=== PATIENT | female | born 1965 | race Caucasian/White ===

== ENCOUNTER 2019-08-19 18:25 | Inpatient (IN) | payer OTHER ==
[~2019-08-19] VITALS: Ht 167.6 cm; Wt 73.9 kg
--- NOTE | 2019-08-19 18:40 | NUR ---
PT BIB SELF C/O SOB AND COUGH, STS SHE WAS SEEN AT "[facility]" FOR THE PASSED 2 DAYS, AND GIVEN "BREATHING TREATMENTS AND STERIOD INJECTIONS" STS SHE WAS ADVISED TO COME TO ED FOR "MORE TREATMENT". PT NOTED TO BE TACHYPNIC AND LABORED, PLACED ON FULL CM IMMEDIATELY, IV 20G TO LAC INITIATED, FULL ROM NOTED TO EDGARD UPPER AND LOWER EXTREMETIES. PT'S GLASSES NOTED TO BE AT BEDSIDE. NO EDEMA NOTED TO EXTREMETIES, 2+ CAP REFILL NOTED TO EDGARD UPPER AND LOWER EXTREMETIES. CALL LIGHT WITHIN REACH, VSS, PT IN POSITION OF COMFORT, EDGARD RAILS RAISED FOR SAFETY.
--- NOTE | 2019-08-19 18:47 | NUR ---
EKG IN PROGRESS.
--- NOTE | 2019-08-19 18:55 | NUR ---
DR HOOPER AT BEDSIDE FOR MSE.
--- NOTE | 2019-08-19 19:05 | NUR ---
PT RETURNED TO XRAY.
--- NOTE | 2019-08-19 19:07 | NUR ---
LAB AT BEDSIDE FOR BLOOD DRAW.
--- NOTE | 2019-08-19 19:09 | NUR ---
RT AT BEDSIDE.
--- NOTE | 2019-08-19 19:11 | NUR ---
REPORT GIVEN TO PAWEL RN TO ASSUME CARE OF PT.
[2019-08-19 19:24] LABS: BASOPHIL % 0.1 % (0-2); PLATELET COUNT 315 x10^3mcL (130-400); RED CELL DISTRIBUTION WIDTH 13.7 % (11.5-14.5)
--- NOTE | 2019-08-19 19:27 | NUR ---
RT AT BEDSIDE TO ADMIN BREATHING TX AND DRAW ABGS.
[2019-08-19 19:42] LABS: ALBUMIN 3.6 g/dL (3.4-5.0); ALKALINE PHOSPHATASE 111 U/L (46-116); ALT/SGPT 24 U/L (14-59); AST/SGOT 13 U/L (15-37); BILIRUBIN TOTAL 0.4 mg/dL (0.20-1.00); CALCIUM 8.4 mg/dL (8.5-10.1); CARBON DIOXIDE 22.8 mmol/L (21-32); CHLORIDE SERUM 86 mmol/L (98-107); CREATININE SERUM 0.9 mg/dL (0.6-1.0); GFR1 > 60 mL/min; GLUCOSE SERUM 94 mg/dL (74-106); POTASSIUM SERUM 3.4 mmol/L (3.5-5.1); TOTAL PROTEIN, SERUM 7.1 g/dL (6.4-8.2)
[2019-08-19 19:48] LABS: SODIUM SERUM 122 mmol/L (136-145)
[2019-08-19] MEDS ORDERED: SEREVENT D0.046 MG/1 IH (20:08)
[2019-08-19] MEDS ORDERED: TUDORZA PR400 MCG/A1 IH (20:08)
[2019-08-19] MEDS ORDERED: NOR10 PO (20:09)
[2019-08-19] MEDS ORDERED: PERCOCET1 TA5 PO (20:09)
[2019-08-19] MEDS ORDERED: CYMBALTA60 M1 PO (20:10)
[2019-08-19] MEDS ORDERED: PROTONIX20 MG PO (20:10)
[2019-08-19] MEDS ORDERED: WELSR PO (20:10)
[2019-08-19] MEDS ORDERED: CLARITIN10 MG PO (20:10)
[2019-08-19] MEDS ORDERED: CYCLOBENZAPRINE10 M1 PO (20:11)
[2019-08-19] MEDS ORDERED: RESTORIL30 MG PO (20:11)
[2019-08-19] MEDS ORDERED: FLOVENT DI100 MCG/A1 (20:12)
[2019-08-19] MEDS ORDERED: VENTOLIN H0.09 MG/A1 INH (20:13)
[2019-08-19] MEDS ORDERED: MUCINEX600 MG PO (20:13)
[2019-08-19] MEDS ORDERED: CRESTOR10 M1 PO (20:14)
--- NOTE | 2019-08-19 20:50 | NUR ---
RECEIVED PT FROM ED VIA [facility], CAME IN DUE TO SOB X5 DAYS. AAOX4. C/O MILD DIZZINESS. ABLE TO FOLLOW COMMANDS. SOB NOTED ON MODERATE EXERTION. W/ PRODUCTIVE COUGH, ABLE TO EXPECTORATE YELLOW SPUTUM. LUNG SOUNDS CTA. O2 PMH=075% ON 2LPM/NC. DENIES CHEST PAIN/PRESSURE, SR ON THE MONITOR. DENIES ABDOMINAL DISCOMFORT. VOIDS. IV SITE PATENT AND INTACT. C/O 5/10 BACK PAIN. AMBULATORY. ABLE TO MOVE ALL EXTREMITIES. SIDE RAILS UPX2. CALL LIGHT ON REACH. ENDORSED TO PRIMARY NURSE DONNA FOR CONTINUITY OF CARE
--- NOTE | 2019-08-19 21:00 | NUR ---
RECEIVED PT FROM RUTHY KING. RR EVEN AND UNLABORED. PT IN NO ACUTE DISTRESS. CALL LIGHT WITHIN REACH. WILL CONTINUE TO MONITOR.
[2019-08-19 21:19] VITALS: BP 150/72
[2019-08-19 21:29] VITALS: Ht 167.6 cm; Wt 73.9 kg
--- NOTE | 2019-08-19 22:00 | NUR ---
PT REQUESTING PERCOCET, PER PT THAT IS HER REGULAR HOME MEDICATION FOR BACK PAIN. INFORMED DR. TAYLOR. PER DR. TAYLOR HE WILL SPEAK TO PT.
--- NOTE | 2019-08-19 22:27 | NUR ---
DR. TAYLOR AT BEDSIDE SPEAKING TO PT REGUARDING PAIN MEDICATION.
[2019-08-20] VITALS: BP 150/72
--- NOTE | 2019-08-20 02:30 | NUR ---
PT RESTING IN BED. RR EVEN AND UNLABORED. IN NO ACUTE DISTRESS. CALL LIGHT WITHIN REACH. BED IN LOWEST POSITION. WILL CONTINUE TO MONITOR.
[2019-08-20 05:03] VITALS: BP 112/65; BP 128/78
--- NOTE | 2019-08-20 07:53 | NUR ---
RECEIVED PATIENT FROM NIGHT NURSE. AWAKE, ALERT AND ORIENTED. RESPIRATIONS REGULAR. DIMINISHED BREATH SOUNDS IN LLL. PRODUCTIVE COUGH. IV INFUSING NS AT 100 ML/HR. PATIENT SITTING ON SIDE OF BED.
[2019-08-20 08:11] LABS: PLATELET COUNT 363 x10^3mcL (130-400); RED CELL DISTRIBUTION WIDTH 14.1 % (11.5-14.5)
[2019-08-20 08:18] LABS: BASOPHIL % 0 % (0-2)
[2019-08-20 08:28] LABS: CALCIUM 8.9 mg/dL (8.5-10.1); CARBON DIOXIDE 22.3 mmol/L (21-32); CHLORIDE SERUM 99 mmol/L (98-107); CREATININE SERUM 0.7 mg/dL (0.6-1.0); GFR1 > 60 mL/min; GLUCOSE SERUM 135 mg/dL (74-106); MAGNESIUM 2.3 mg/dL (1.8-2.4); PHOSPHOROUS 3.3 mg/dL (2.5-4.9); SODIUM SERUM 133 mmol/L (136-145)
[2019-08-20 08:31] VITALS: BP 133/79
--- NOTE | 2019-08-20 11:10 | NUR ---
ECHOCARIOGRAM IN PROGRESS. RECEIVED CALL FROM PATIENT'S SON, ANNABEL. UPDATED ON CURRENT PLAN.
[2019-08-20 12:54] VITALS: BP 113/67
--- NOTE | 2019-08-20 13:10 | NUR ---
PER DR RUSSO, PATIENT WANT TO BE DISCHARGED HOME. RECEIVED ORDER FOR RT TO CHECK PATIENT'S O2 SAT DURING AMBULATION. NOTIFY WITH RESULTS.
[2019-08-20 14:11] LABS: CHOLESTEROL/HDL RATIO 1.9
--- NOTE | 2019-08-20 15:24 | NUR ---
PATIENT SITTING IN CHAIR. O2 SAT 93% ON ROOM AT REST. PER RT ASSESSMENT - PATIENT WAS 92% DURING AMBULATION AND 94% AT REST, ON ROOM AIR. CALL PLACED FOR DR RUSSO TO NOTIFY. PATIENT WANTS TO BE DISCHARGED HOME. AGREEABLE TO INFLUENZA VACCINE PRIOR TO DISCHARGE.
[2019-08-20] MEDS ORDERED: LEVAQUIN750 MG PO (15:55)
[2019-08-20] MEDS ORDERED: MUCINEX600 MG PO (15:56)
[2019-08-20 16:21] VITALS: BP 113/67
--- NOTE | 2019-08-20 16:48 | NUR ---
AT 1610 - RECEIVED DISCHARGE ORDERS. INFLUENZA VACCINE ADMINISTERED ORDERED. IV INFUSION DISCONTINED. IV CATHETER REMOVED INTACT. TAKEN OFF CARDIAC MONITORING ADN PREPARED FOR DISCHARGE. AT 1630 - PRINTED DISCHARGE INSTRUCTIONS GIVEN AND EXPLAINED TO PATIENT. AT 1645 - DISCHARGED HOME WITH FAMILY - SON AND [id number]. TAKEN TO DISCHARGE OFFICE IN WHEELCHAIR BY NURSE.
== END 2019-08-20 16:45 | disposition home or self-care (01) | DRG 720 ==
LOC: ED 18:25 → DU 19:59
PROVIDERS: Emergency Medicine; ADMIT Internal Medicine
DX: A41.9 Sepsis, unspecified organism (principal); J18.9 Pneumonia, unspecified organism; E87.8 Other disorders of electrolyte and fluid balance, not elsewhere classified; E87.1 Hypo-osmolality and hyponatremia; F32.9 Major depressive disorder, single episode, unspecified; I10 Essential (primary) hypertension; M79.7 Fibromyalgia; J43.9 Emphysema, unspecified; E87.6 Hypokalemia; Z87.891 Personal history of nicotine dependence; Z23 Encounter for immunization
CPT/HCPCS: 36600; 83880; 87804; 90658; G0378; J0456; J0696; J1956; J2930; J7030; J7050; J7060; J7613; J7620; J7626